=== PATIENT | male | born 1965 | race Caucasian/White ===

== ENCOUNTER 2018-05-27 22:27 | Emergency (ER) | payer MEDICAID ==
[~2018-05-27] VITALS: Ht 170.2 cm; Wt 69.9 kg
[2018-05-27 22:41] VITALS: BP 113/64
--- NOTE | 2018-05-27 22:44 | NUR ---
TO LOBBY A/W BED, NU LOCKE NOTED
--- NOTE | 2018-05-27 23:30 | NUR ---
PT C/O INCREASING TIREDNESS AT HOME OVER PAST WEEK. FULL CLEAR SPEECH, PUPILS 3 MM PERRLA BILAT, JOHNSON X 4. PT DENIES N/V/D; SKIN IS INTACT, PINK/WARM/DRY; AAOX4, PERRL, WITH EVEN AND STEADY GAIT; LUNGS CLEAR BL, BREATHING UNLABORED; HR EVEN AND REGULAR,PT DENIES ANY FEVER, CP, SOB, OR COUGH AT THIS TIME; PT STATES 0/10 PAIN AT THIS TIME; VSS; PATIENT POSITIONED FOR COMFORT; HOB ELEVATED; BEDRAILS UP X1; BED DOWN.
--- NOTE | 2018-05-27 23:42 | NUR ---
Dr. Umana evaluating patient at bedside.
--- NOTE | 2018-05-28 00:53 | NUR ---
PT TAKEN TO CT
[2018-05-28] MEDS ORDERED: KETOROLAC 60 MG/2 ML VIAL IM ONE (01:30)
[2018-05-28 01:57] VITALS: BP 108/61
== END 2018-05-28 01:57 | disposition home or self-care (01) ==
LOC: MED 22:27 → EDBD 22:27 → MED 05-28 01:57
DX: M25.512 Pain in left shoulder (principal); R40.0 Somnolence; Z86.73 Personal history of transient ischemic attack (TIA), and cerebral infarction without residual deficits
CPT/HCPCS: 70450; 81002; 93005; 96372; 99284; J1885

== ENCOUNTER 2018-09-14 00:23 | Emergency (ER) | payer MEDICAID ==
[~2018-09-14] VITALS: Ht 172.7 cm; Wt 71.7 kg
[2018-09-14 00:25] VITALS: BP 116/72
--- NOTE | 2018-09-14 00:28 | NUR ---
TO LOBBY A/W BED, AMBULATORY
--- NOTE | 2018-09-14 00:35 | NUR ---
EKG PERFORMED IN TRIAGE ROOM
--- NOTE | 2018-09-14 01:20 | NUR ---
TO ER BED 7
[2018-09-14] MEDS ORDERED: KETOROLAC 60 MG/2 ML VIAL IM ONE (01:45)
--- NOTE | 2018-09-14 01:58 | NUR ---
PT WENT TO CT
--- NOTE | 2018-09-14 02:00 | NUR ---
SEIZURE PRECAUTIONS IMPLEMENTED, PT TOLERATED WELL.
--- NOTE | 2018-09-14 02:46 | NUR ---
Patient discharged with v/s stable. Written and verbal after care instructions given and explained. Patient verbalized understanding. Ambulatory with steady gait. All questions addressed prior to discharge. Advised to follow up with PMD.
[2018-09-14 02:47] VITALS: BP 119/62
== END 2018-09-14 02:47 | disposition home or self-care (01) ==
LOC: MED 00:23
DX: S20.20XA Contusion of thorax, unspecified, initial encounter (principal); R56.9 Unspecified convulsions; Z86.73 Personal history of transient ischemic attack (TIA), and cerebral infarction without residual deficits; X58.XXXA Exposure to other specified factors, initial encounter; Y93.89 Activity, other specified; Y92.89 Other specified places as the place of occurrence of the external cause; Y99.8 Other external cause status
CPT/HCPCS: 71101; 93005; 96372; 99283; J1885

== ENCOUNTER 2022-02-18 17:00 | Emergency (ER) | payer MEDICAID, OTHER ==
[~2022-02-18] VITALS: Ht 170.2 cm; Wt 73.0 kg
[2022-02-18 17:08] VITALS: BP 140/78
[2022-02-18] MEDS ORDERED: MORPHINE SULFATE 4 MG/ML SYR IM ONE (17:20)
[2022-02-18 19:20] LABS: EOSINOPHILS # (AUTO) 0.3 K/uL (0-0.4); EOSINOPHILS % (AUTO) 5.4 % (0.0-4.0); HEMATOCRIT 41.2 % (36-52); HEMOGLOBIN 14.2 g/dL (12.0-18.0); LYMPHOCYTES % (AUTO) 40.1 % (20.5-51.1); MEAN CORPUSCULAR HEMOGLOBIN 30 pg (27-31); MEAN CORPUSCULAR HGB CONC 34 g/dL (33-37); MEAN CORPUSCULAR VOLUME 85.7 fL (80-94); MONOCYTES # (AUTO) 0.5 K/uL (0.8-1.0); MONOCYTES % (AUTO) 9.3 % (1.7-9.3); NEUTROPHILS # (AUTO) 2.2 K/uL (1.8-7.7); NEUTROPHILS % (AUTO) 44.2 % (42.2-75.2); PLATELET COUNT (AUTO) 210 K/uL (140-450); RED BLOOD CELL COUNT(AUTO) 4.81 MIL/uL (4.20-6.10); RED CELL DISTRIBUTION WIDTH 13.3 % (11.6-13.7); WHITE BLOOD COUNT (AUTO) 4.9 K/uL (4.8-10.8)
[2022-02-18 19:32] LABS: ANION GAP 9.2 (8-16); CARBON DIOXIDE 27.8 mmol/L (21-32); CHLORIDE 102 mmol/L (98-107); CREATININE 0.9 mg/dL (0.6-1.3); GFR ARICAN-AMERICAN 113 mL/min (>90); GLUCOSE 82 mg/dL (74-106); SODIUM SERUM 135 mmol/L (136-145); UREA NITROGEN, BLOOD 10 mg/dL (7-18)
--- NOTE | 2022-02-18 19:33 | NUR ---
RECEIVED PT IN BED 5 AT THIS TIME
[2022-02-18] MEDS ORDERED: MORPHINE SULFATE 4 MG/ML SYR ONE (19:34)
--- NOTE | 2022-02-18 19:35 | NUR ---
RECEIVED IN BED 5 WITH C/O NUMBNESS ON THE LEFT ARM X 5 YEARS. PER PT HE HAD A PINCHED NERVE LAST MONTH AND WAS SUPPOSED TO DO SURGERY IN ARROWHEAD BUT WAS CANCELLED. 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
--- NOTE | 2022-02-18 19:40 | NUR ---
MEDICATED NFOR PAIN
[2022-02-18 19:41] LABS: ALBUMIN 3.5 g/dL (3.4-5.0); ASPARTATE AMINOTRANSFERASE 20 U/L (15-37); TOTAL BILIRUBIN 0.3 mg/dL (0.0-1.0)
--- NOTE | 2022-02-18 21:19 | NUR ---
Patient appears to be resting comfortably in bed. Vital Signs within normal limits. Respirations even and unlabored.
[2022-02-18] MEDS ORDERED: LID5T TP (21:49)
[2022-02-18] MEDS ORDERED: ACET-9527 PO (21:49)
[2022-02-18] MEDS ORDERED: IBUP-2213 PO (21:49)
[2022-02-18 22:30] VITALS: BP 138/74
--- NOTE | 2022-02-18 22:30 | NUR ---
Patient discharged with v/s stable. Written and verbal after care instructions given and explained. Patient alert, oriented and verbalized understanding of instructions. Ambulatory with steady gait. All questions addressed prior to discharge. ID band removed. Patient advised to follow up with PMD. Rx of HYDROCODONE, MOTRIN, LIDODERM PATCH given. Patient educated on indication of medication including possible reaction and side effects. Opportunity to ask questions provided and answered.
== END 2022-02-18 22:30 | disposition home or self-care (01) ==
LOC: MED 17:00
DX: M54.12 Radiculopathy, cervical region (principal); R07.89 Other chest pain; R20.0 Anesthesia of skin; Z86.73 Personal history of transient ischemic attack (TIA), and cerebral infarction without residual deficits; Z79.899 Other long term (current) drug therapy
CPT/HCPCS: 36415; 70450; 71045; 72125; 80053; 84484; 85025; 96372; 99285; J2270; Q0092

== ENCOUNTER 2022-06-26 14:46 | Inpatient (IN) | payer OTHER ==
[~2022-06-26] VITALS: Ht 177.8 cm; Wt 83.9 kg
[~2022-06-26 14:46] MED LIST: ACET-9527 PO; IBUP-2213 PO; LID5T TP
--- NOTE | 2022-06-26 15:30 | NUR ---
TO BED 9 VIA EVELYN Acuña SON. NO SEIZURE ACTIVITY. NO DISTRESS. SEIZURE PRECAUTIONS IN PLACE
[2022-06-26 15:35] VITALS: BP 149/74
--- NOTE | 2022-06-26 15:41 | NUR ---
BLOOD SUGAR ACCU CHECK = 107
--- NOTE | 2022-06-26 16:24 | NUR ---
here for sz today am, pt oriented to name, place, event, does not know the date or day denies any pain, sr n cm, o2 sat 98% ra, s ru ptimes 2, padded son at bs
[2022-06-26 16:42] LABS: BASOPHILS # (AUTO) 0.1 K/uL (0.00-0.22); BASOPHILS % (AUTO) 1.1 % (0.0-2.0); EOSINOPHILS # (AUTO) 0.3 K/uL (0-0.4); EOSINOPHILS % (AUTO) 6.1 % (0.0-4.0); HEMATOCRIT 42.8 % (36-52); HEMOGLOBIN 15.1 g/dL (12.0-18.0); LYMPHOCYTES # (AUTO) 1.3 K/uL (2.0-11.5); LYMPHOCYTES % (AUTO) 25.3 % (20.5-51.1); MEAN CORPUSCULAR HEMOGLOBIN 30 pg (27-31); MEAN CORPUSCULAR HGB CONC 35 g/dL (33-37); MEAN CORPUSCULAR VOLUME 85.1 fL (80-94); MONOCYTES # (AUTO) 0.6 K/uL (0.8-1.0); MONOCYTES % (AUTO) 10.9 % (1.7-9.3); NEUTROPHILS # (AUTO) 2.9 K/uL (1.8-7.7); NEUTROPHILS % (AUTO) 56.6 % (42.2-75.2); PLATELET COUNT (AUTO) 186 K/uL (140-450); RED BLOOD CELL COUNT(AUTO) 5.03 MIL/uL (4.20-6.10); RED CELL DISTRIBUTION WIDTH 13.9 % (11.6-13.7); WHITE BLOOD COUNT (AUTO) 5.2 K/uL (4.8-10.8)
[2022-06-26 17:10] LABS: ALBUMIN 3.5 g/dL (3.4-5.0); ANION GAP 11.5 (8-16); ASPARTATE AMINOTRANSFERASE 13 U/L (15-37); CARBON DIOXIDE 26.3 mmol/L (21-32); CHLORIDE 103 mmol/L (98-107); CREATININE 1.6 mg/dL (0.6-1.3); FREE T4 (FREE THYROXINE) 1.03 ng/dL (0.76-1.46); GFR ARICAN-AMERICAN 58 mL/min (>90); GLUCOSE 108 mg/dL (74-106); POTASSIUM 3.8 mmol/L (3.5-5.1); SODIUM SERUM 137 mmol/L (136-145); TOTAL BILIRUBIN 0.3 mg/dL (0.0-1.0); UREA NITROGEN, BLOOD 11 mg/dL (7-18)
[2022-06-26] MEDS ORDERED: levETIRAcetam 1,000 MG in NACL 0.9% 100 ML IV ONE (17:20)
[2022-06-26] MEDS ORDERED: NACL 0.9% 1,000 ML IV ONE (17:20)
[2022-06-26] MEDS ORDERED: levETIRAcetam 100 MG/ML VIAL IV ONE (17:31)
[2022-06-26 17:43] LABS: THYROID STIMULATING HORMONE 0.72 uIU/mL (0.34-3.74)
[2022-06-26 17:46] LABS: APPEARANCE,URINE CLEAR (CLEAR); BILIRUBIN,URINE NEGATIVE (NEGATIVE); BLOOD, URINE NEGATIVE (NEGATIVE); COLOR,URINE YELLOW (YELLOW); LEUKOCYTE ESTERASE ,URINE NEGATIVE (NEGATIVE); NITRITE, URINE NEGATIVE (NEGATIVE); UGLUCOSE NEGATIVE (NEGATIVE)
[2022-06-26 18:13] LABS: ACETAMINOPHEN < 0.5 ug/ml (10-30); SALICYLATE < 2.8 mg/dL (2.8-20.0)
[2022-06-26] MEDS ORDERED: ZOLPIDEM 5 MG TAB PO PRN (18:45)
[2022-06-26] MEDS ORDERED: DOCUSATE SODIUM 100 MG GELCAP PO PRN (18:45)
[2022-06-26] MEDS ORDERED: ONDANSETRON 4 MG/2 ML VIAL IM/IVP PRN (18:45)
[2022-06-26] MEDS ORDERED: guaiFENesin DM 200/20 MG-10 ML 10 ML UDC PO PRN (18:45)
[2022-06-26] MEDS ORDERED: HYDROcodone/APAP 7.5/325 MG 1 TAB PO PRN (18:45)
[2022-06-26] MEDS ORDERED: ACETAMINOPHEN 325 MG TAB PO PRN (18:45)
[2022-06-26] MEDS: NACL 0.9% 1,000 ML IV SCH (18:45)
[2022-06-26] MEDS ORDERED: POTASSIUM CHLORIDE 10 MEQ TABER PO PRN (18:45)
[2022-06-26] MEDS ORDERED: GABA400C PO (19:00)
[2022-06-26] MEDS ORDERED: LEVE750T25 PO (19:01)
[2022-06-26] MEDS ORDERED: VENL37.55 PO (19:03)
[2022-06-26] MEDS ORDERED: SINE25 PO (19:03)
[2022-06-26] MEDS ORDERED: LAM200 PO ×3 (19:05→19:07)
[2022-06-26 19:09] LABS: PHOSPHORUS 3.7 mg/dL (2.5-4.9)
[2022-06-26 19:31] LABS: PROTHROMBIN TIME 11.5 secs (10.8-13.4)
--- NOTE | 2022-06-26 20:49 | NUR ---
Report given to Garrick FRANKLIN.
[2022-06-26 21:20] VITALS: BP 116/76
--- NOTE | 2022-06-26 21:40 | NUR ---
RECEIVED REPORT FROM ER NURSE JUAN J FOR CONTINUITY OF CARE. PATIENT IS A&O X2. PATIENT IS ON ROOM AIR, BREATHING IS NORMAL WITH SYMMETRICAL RISE AND FALL OF CHEST. IV IS A 20G RFA, RUNNING NS AT 60. PATIENT IS LYING SUPINE POSITION, AWAKE BUT LETHARGIC. BED IS IN LOWEST POSITION, WHEELS LOCKED, CALL LIGHT IN PLACE. WILL CONTINUE TO OBSERVE PATIENT.
[2022-06-26] MEDS: levETIRAcetam 500 MG TAB PO SCH (21:49)
[2022-06-26 22:30] LABS: BARBITURATE, URINE NEGATIVE ng/ml (NEG <=200); BENZODIAZEPINE, URINE NEGATIVE ng/mL (NEG <=200); CANNABINOID, URINE NEGATIVE ng/mL (NEG <=50); COCAINE, URINE NEGATIVE ng/mL (NEG <=300); OPIATE, URINE NEGATIVE ng/mL (NEG <=2000); PHENCYCLIDINE SCREEN,URINE NEGATIVE ng/mL (NEG <=25)
[2022-06-27] VITALS: BP 114/66
--- NOTE | 2022-06-27 01:00 | NUR ---
PATIENT WAS COOPERATIVE DURING ADMISSION. 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 ANALYST FOOD AND BEVERAGE WAS ABE ID# [id number]. PATIENT WAS ABLE TO ANSWER THE MAJORITY OF THE QUESTIONS, BUT STRUGGLED WITH REMEMBERING IF COVID VACCINE WAS EVER DONE AND STATED THAT HE THINKS HIS NAME IS MARKUS AND HE THINKS HE'S IN THE HOSPITAL. HE COULD NOT REMEMBER HIS , AND COULD NOT PROVIDE THE DAY OR TIME. PATIENT STATED THAT HE HAD AN EPILEPTIC SEIZURE AND SINCE THE SEIZURE HE HAS HAD WEAKNESS WITH HIS LEFT SIDE. PATIENT ALSO STATED THAT SINCE THE SEIZURE HE HAS BEEN VERY TIRED. 2100 PO MEDICATION WAS ADMINISTERED SUCCESSFULLY WITHOUT ANY DIFFICULTIES WITH SWALLOWING. PATIENT IS SLEEPING NOW, BREATHING IS NORMAL WITH SYMMETRICAL RISE AND FALL OF CHEST. WILL CONTINUE TO OBSERVE PATIENT.
[2022-06-27 04:00] VITALS: BP 100/61
--- NOTE | 2022-06-27 05:45 | NUR ---
PATIENT HAS SLEPT THROUGHOUT THE NIGHT. PATIENT WAS ABLE TO AMBULATE INDEPENDENTLY TO BATHROOM DURING THE NIGHT WITH NOEMI PEARSON BY HIS SIDE. NOEMI PEARSON STATED TO ME THAT PATIENT HAD A STEADY GAIT. PATIENT STATED THAT HE VOIDED BUT DID NOT HAVE A BOWEL MOVEMENT. PATIENT IS CURRENTLY SLEEPING, LYING SEMI-FOWLERS POSITION. BREATHING IS NORMAL WITH SYMMETRICAL RISE AND FALL OF CHEST. WILL CONTINUE TO OBSERVE PATIENT.
--- NOTE | 2022-06-27 07:23 | NUR ---
ENDORSED TO DAY SHIFT NURSE ILENE FOR CONTINUITY OF CARE. PATIENT IS STABLE.
--- NOTE | 2022-06-27 07:28 | NUR ---
RECEIVED PATIENT FROM PM SHIFT RN FOR CONTINUITY OF CARE. PATIENT SEEN ASLEEP WITH NORMAL RISE AND FALL CHEST. PATIENT CARE PLAN REVIEWED AND PATIENT MONITORING CONTINUED.
[2022-06-27 08:00] VITALS: BP 102/65
[2022-06-27] MEDS ORDERED: PANTOPRAZOLE 40 MG TABEC PO SCH (09:00)
--- NOTE | 2022-06-27 09:00 | NUR ---
PATIENT UNDERGOING EEG. MEDS GIVEN PRIOR
[2022-06-27] MEDS: levETIRAcetam 500 MG TAB PO SCH (09:06)
--- NOTE | 2022-06-27 10:42 | NUR ---
PATIENT HAS BEEN SCREENED AND CATEGORIZED HIGH NUTRITION RISK. PATIENT WILL BE SEEN WITHIN 1-2 DAYS OF ADMISSION. FNS REFERRAL RECEIVED FOR NAUSEA/VOMITING/DIARRHEA FOR > 3 DAYS. 06/27/22-06/28/[address]
[2022-06-27] MEDS: NACL 0.9% 1,000 ML IV SCH ×2 (11:25→15:30)
--- NOTE | 2022-06-27 11:36 | NUR ---
DC [age] YRS OLD MALE PATIENT WAS ADMITTED FROM HOME WITH A DX OF ALOC AND SEIZURE. 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 CXR SHOWED NO ACUTE CARDIOPULMONARY DISEASE. RAPID COVID TEST NEGATIVE. 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 ADMINISTERED IVF, AND CONTINUED HOME MEDS. CONSULTED WITH NEURO. DC PLAN TO GO HOME WHEN STABLE. CM TO FOLLOW.
[2022-06-27 12:00] VITALS: BP 115/74
--- NOTE | 2022-06-27 12:30 | NUR ---
PATIENT FAMILY (SON) COMES TO VISIT. PATIETN AWAKE LYING ON BED.
[2022-06-27] MEDS ORDERED: HYDROcodone/APAP 7.5/325 MG 1 TAB PO PRN (13:30)
[2022-06-27] MEDS ORDERED: ONDANSETRON 4 MG/2 ML VIAL IVP PRN (13:30)
[2022-06-27] MEDS ORDERED: POTASSIUM CHLORIDE 10 MEQ TABER PO PRN (13:30)
[2022-06-27] MEDS ORDERED: ACETAMINOPHEN 325 MG TAB PO PRN (13:30)
[2022-06-27] MEDS ORDERED: MAG SULF 2000 MG/WATER PREMIX 50 ML IV PRN (13:30)
--- NOTE | 2022-06-27 13:30 | NUR ---
PATIENT ASKS IF HE IS ABLE TO EAT. MD CONTACTED FOR NEW NUTRITION ORDERS.
--- NOTE | 2022-06-27 13:45 | NUR ---
NEW ORDERS FOR PATIENT DIET GIVEN. NOTIFIED NUTRITION.
[2022-06-27 13:54] LABS: BASOPHILS % (AUTO) 0.8 % (0.0-2.0); EOSINOPHILS # (AUTO) 0.3 K/uL (0-0.4); HEMATOCRIT 42.8 % (36-52); HEMOGLOBIN 14.8 g/dL (12.0-18.0); LYMPHOCYTES # (AUTO) 1.2 K/uL (2.0-11.5); LYMPHOCYTES % (AUTO) 28.6 % (20.5-51.1); MEAN CORPUSCULAR HEMOGLOBIN 30 pg (27-31); MEAN CORPUSCULAR HGB CONC 35 g/dL (33-37); MEAN CORPUSCULAR VOLUME 86.1 fL (80-94); MONOCYTES # (AUTO) 0.3 K/uL (0.8-1.0); MONOCYTES % (AUTO) 8.3 % (1.7-9.3); NEUTROPHILS # (AUTO) 2.2 K/uL (1.8-7.7); NEUTROPHILS % (AUTO) 54.3 % (42.2-75.2); PLATELET COUNT (AUTO) 173 K/uL (140-450); RED BLOOD CELL COUNT(AUTO) 4.97 MIL/uL (4.20-6.10); RED CELL DISTRIBUTION WIDTH 13.9 % (11.6-13.7); WHITE BLOOD COUNT (AUTO) 4.1 K/uL (4.8-10.8)
[2022-06-27 14:13] LABS: CARBON DIOXIDE 30.3 mmol/L (21-32); CREATININE 1.1 mg/dL (0.6-1.3); POTASSIUM 4.3 mmol/L (3.5-5.1)
[2022-06-27 14:30] LABS: CHOL/HDL RATIO 3.9 (1-4.5); FREE T4 (FREE THYROXINE) 0.97 ng/dL (0.76-1.46); PHOSPHORUS 2.6 mg/dL (2.5-4.9); THYROID STIMULATING HORMONE 0.57 uIU/mL (0.34-3.74)
--- NOTE | 2022-06-27 14:56 | NUR ---
06/27/22 RD INITIAL ASSESSMENT COMPLETED PLEASE REFER TO NUTRITION ASSESSMENT UNDER CARE ACTIVITY FOR ESTIMATED NUTRITIONAL NEEDS. PATIENT HAS BEEN RE-SCREENED AND RE-CATEGORIZED LOW NUTRITIONAL RISK. PT WILL BE SEEN WITHIN 7 DAYS FROM ADMISSION 1. CONTINUE DIET TOLERATED 2. RD WILL CONTINUE TO MONITOR PO INTAKE, GI FUNCTION AND WEIGHTS. 3. RD TO FOLLOW-UP 7 DAYS, LOW RISK MERLIN MABRY, FRANDY
[2022-06-27 16:00] VITALS: BP 90/60
[2022-06-27] MEDS ORDERED: DOXEPIN 25 MG CAP PO SCH (17:00)
[2022-06-27] MEDS ORDERED: GABAPENTIN 100 MG CAP PO SCH (17:00)
[2022-06-27] MEDS: GABAPENTIN 300 MG CAP PO SCH (17:20)
[2022-06-27] MEDS: GABAPENTIN 100 MG CAP PO SCH (17:21)
--- NOTE | 2022-06-27 19:08 | NUR ---
PATIENT SEEN. VITALS STABLE. PATIENT VERBALIZES NO PAIN AND SATISFIED WITH MEAL. PREPARING TO ENDORSE TO PM NURSE.
--- NOTE | 2022-06-27 19:10 | NUR ---
RECEIVED PT ENDORSEMENT FROM DAY SHIFT NURSE. PT IS AROUSABLE AND ABLE TO VERBALIZED NEEDS.
[2022-06-27 20:00] VITALS: BP 104/63
[2022-06-27] MEDS ORDERED: NON-FORMULARY ITEM (Levetiracetam* (Keppra Xr*) 750 MG) PO SCH (21:00)
[2022-06-27] MEDS: DOCUSATE SODIUM 100 MG GELCAP PO SCH (21:42)
[2022-06-27] MEDS: levETIRAcetam 100 MG/ML ORASYR PO SCH (21:43)
[2022-06-28] VITALS: BP 103/65
--- NOTE | 2022-06-28 00:15 | NUR ---
PT IS SLEEPING BUT AROUSAL ON STIMULI.
--- NOTE | 2022-06-28 02:00 | NUR ---
PT IS ASLEEP BUT ABLE TO RESPONSE. PT DENIES OF FEELING PAIN OR DISCOMFORT.
[2022-06-28 04:00] VITALS: BP 95/60
--- NOTE | 2022-06-28 04:00 | NUR ---
VITAL SIGNS CHECKED, PT TOLERATES. NO FACIAL GRIMACING, NO SOB OR DISTRESS. PT SLEEPING WELL.
[2022-06-28 08:00] VITALS: BP 105/64
[2022-06-28] MEDS ORDERED: NON-FORMULARY ITEM (Venlafaxine HCl* (Effexor Xr*) 1 CAP) PO SCH (09:00)
[2022-06-28] MEDS ORDERED: VENLAFAXINE 37.5 MG TAB PO SCH (09:00)
[2022-06-28] MEDS ORDERED: PANTOPRAZOLE 40 MG INJ VIAL IVP SCH (09:00)
[2022-06-28] MEDS ORDERED: LAM200 PO (09:21)
[2022-06-28] MEDS: GABAPENTIN 100 MG CAP PO SCH (09:21)
[2022-06-28] MEDS ORDERED: LEVE750T25 PO (09:21)
[2022-06-28] MEDS: GABAPENTIN 300 MG CAP PO SCH (09:22)
[2022-06-28] MEDS: DOCUSATE SODIUM 100 MG GELCAP PO SCH (09:22)
[2022-06-28] MEDS: levETIRAcetam 100 MG/ML ORASYR PO SCH (09:22)
[2022-06-28] MEDS: NACL 0.9% 1,000 ML IV SCH (09:30)
[2022-06-28 11:55] VITALS: BP 105/64
== END 2022-06-28 13:10 | disposition home or self-care (01) | DRG 53 ==
LOC: MED 14:46 → OBSVTOIN 18:45 → MTU 18:45
PROVIDERS: ADMIT Student in an Organized Health Care Education/Training Program; ATTEND Student in an Organized Health Care Education/Training Program
PROC: 4A10X4Z Monitoring of Central Nervous Electrical Activity, External Approach (ICD-10-PCS; principal; 2022-06-28)
DX: G40.909 Epilepsy, unspecified, not intractable, without status epilepticus (principal); N17.0 Acute kidney failure with tubular necrosis; E44.1 Mild protein-calorie malnutrition; I69.354 Hemiplegia and hemiparesis following cerebral infarction affecting left non-dominant side; Z20.822 Contact with and (suspected) exposure to COVID-19; Z68.26 Body mass index [BMI] 26.0-26.9, adult
CPT/HCPCS: 36415; 70450; 71045; 80048; 80053; 80305; 81003; 82140; 82150; 83036; 83605; 83690; 83735; 83880; 84100; 84439; 84443; 84484; 85025; 85610; 85730; 87081; 96374; 99285; C9113; G0480; G0482; J1953; Q0092

== ENCOUNTER 2023-02-27 19:38 | Emergency (ER) | payer OTHER ==
[~2023-02-27] VITALS: Ht 172.7 cm; Wt 71.7 kg
[~2023-02-27 19:38] MED LIST changes: -ACET-9527 PO; +GABA400C PO; -IBUP-2213 PO; +LAM200 PO; +LEVE750T25 PO; -LID5T TP; +SINE25 PO; +VENL37.57 PO
[2023-02-27 20:04] VITALS: BP 113/70; PULSE 75; RESP 16; TEMP 98.3; O2SAT 99
[2023-02-27] MEDS ORDERED: PRED20TA5 PO (22:19)
[2023-02-27] MEDS ORDERED: ALBU0.0912 INH (22:19)
[2023-02-27 22:32] VITALS: BP 113/70; PULSE 75; RESP 16; TEMP 98.3; O2SAT 99
== END 2023-02-27 22:32 | disposition home or self-care (01) ==
LOC: MED 19:38
DX: J98.4 Other disorders of lung (principal); F15.10 Other stimulant abuse, uncomplicated; Z86.73 Personal history of transient ischemic attack (TIA), and cerebral infarction without residual deficits; Z86.69 Personal history of other diseases of the nervous system and sense organs; Z79.899 Other long term (current) drug therapy
CPT/HCPCS: 71046; 93005; 99283